=== PATIENT | female | born 1945 | race Caucasian/White ===

== ENCOUNTER 2017-02-09 11:48 | Inpatient (IN) | payer MEDICARE, OTHER ==
[~2017-02-09] VITALS: Ht 162.6 cm; Wt 69.1 kg
[~2017-02-09 11:48] MED LIST: ASPI325T PO; BILB100C PO; CALC-137 PO; FERR325T PO; FISH1000 PO; JUICLIQ5 PO; LORTA5 PO; ROSU5 PO; VESI5TAB PO; VITD400 PO; Z.0.CPM
[2017-02-09 11:54] VITALS: BP 171/90; PULSE 63; RESP 20; TEMP 98.8; O2SAT 100
[2017-02-09] MEDS ORDERED: VESI5TAB PO (11:58)
[2017-02-09] MEDS ORDERED: ROSU5 PO (11:58)
[2017-02-09] MEDS ORDERED: CALTTAB5 PO (11:58)
[2017-02-09] MEDS ORDERED: OMEGCAP PO (11:58)
[2017-02-09] MEDS ORDERED: ASPI81CH CHEW (11:58)
--- NOTE | 2017-02-09 12:04 | PD ---
HPI Chief Complaint: Fall Time Seen by Provider: 12:00 Travel History International Travel<30 days: No Contact w/Intl Traveler<30days: No Traveled to known affect area: No History of Present Illness HPI 71-year-old female that presents to the ED for evaluation of injury to the right hip. Patient came here by ambulance for evaluation of this. Injury occurred less than an hour ago. Patient states that she was at home going into her living room when her family member called to her and she twisted her body to look at her and she lost her balance and landed on her right hip. Per patient she had recent surgery on her right knee for knee replacement and was trying to save her knee as well as her head and she was successful but unfortunate she landed on her hip and ever since she's not been able to bear any weight on the hip. Per patient the pain is severe whenever she moves it is 10 out of 10. At the moment patient has no pain but she was also given 10 mg of morphine and states that movement is what makes it worse. She denies any numbness, tilling, weakness. No prior injuries or surgeries to the pelvis or hip. She denies hitting her head or taking any blood thinners. No other injuries reported. Patient has full range of motion of the left hip but she states that extending her left hip calluses pain on the right hip. Patient states that she has allergies to adhesives and sulfa PFSH Past Medical History Cancer: Yes (MELANOMA LEFT ARM; CERVICAL CA) Cardiovascular Problems: No Diabetes: No Endocrine: No Glaucoma: No Genitourinary: Yes (FREQUENCY) Hepatitis: No Hiatal Hernia: No Hypertension: No Immune Disorder: No Musculoskeletal: Yes (ARTHRITIS, HX OSTEOPENIA (REVERSED)) Neurologic: No Psychiatric: No Reproductive: No Respiratory: No Thyroid Disease: No Past Surgical History Abdominal Surgery: No AICD: No Cardiac Surgery: No Ear Surgery: No Endocrine Surgery: No Eye Surgery: No Genitourinary Surgery: No Gynecologic Surgery: Yes (HYSTERECTOMY R/T CERVICAL CA) Joint Replacement: No Oral Surgery: Yes (T&A) Pacemaker: No Thoracic Surgery: No Other Surgery: Yes (EXCISION MELANOMA LEFT UPPER ARM) Social History Alcohol Use: No Tobacco Use: No Substance Use: No Allergies-Medications (Allergen,Severity, Reaction): Coded Allergies: Sulfa (Verified Allergy, Intermediate, NAUSEA AND VOMITING ; DIARRHEA, ) Adhesives (Verified Allergy, Mild, BLISTERS, 10/08/15) Reported Meds & Prescriptions Reported Meds & Active Scripts Active Reported Vesicare (Solifenacin) 5 Mg Tab 5 Mg PO DAILY Crestor (Rosuvastatin Calcium) 5 Mg Tab 5 Mg PO EVERY OTHER DAY Matthews-3 Fish Oil/Vitamin (Fish Oil-Cholecalciferol) 1,000-1,000 Mg Cap 1 Cap PO DAILY Caltrate 600 (Calcium Carbonate) 1,500 Mg Tab 1 Tab PO BID Aspirin 81 Mg Chew 81 Mg CHEW DAILY Review of Systems General / Constitutional: No: Fever, Chills, Weight Gain, Weight Loss, Other Eyes: No: Diploplia, Blurred Vision, Photophobia, Drainage, Redness, Foreign Body Sensation, Pain, Tearing, Blind Spots, Visual changes, Blindness, Other HENT: No: Headaches, Vertigo, Lightheadedness, Sore Throat, Rhinitis, Rhinorrhea, Congestion, Nosebleed, Neck Stiffness, Neck Pain, Masses, Gingival Bleeding, Dental Difficulties, Ear Discharge, Earache, Other Cardiovascular: No: Chest Pain or Discomfort, Palpitations, Irregular Rhythm, Tachycardia, Diaphoresis, Syncope, Dyspnea on exertion, Varicosities, Edema, Cyanosis, Varicosities, Phlebitis, Claudication, Other Respiratory: No: Cough, Shortness of Breath, Wheezing, Sneezing, Orthopnea, Hemoptysis, Stridor, Night Sweats, Pleuritic Pain, Other Gastrointestinal: No: Nausea, Vomiting, Diarrhea, Abdominal Pain, Hematemesis, Hematochezia, Constipation, Changes in Bowel Habits, Indigestion, Dysphagia, Loss of Appetite, Other Genitourinary: No: Urgency, Frequency, Dysuria, Nocturia, Hematuria, Decreased Urinary Output, Oliguria, Hesitancy, Dribbling, Incontinence, Pelvic Pain, Flank Pain, Dyspareunia, Discharge, Dysmenorrhea, Menorrhagia, Metorrhagia, Vaginal Bleeding, Other Musculoskeletal: Positive: Limited ROM, Pain, No: Myalgias, Arthralgias, Weakness, Cramping, Edema, Atrophy, Other Skin: No Rash, No Itching, No Dryness, No Lumps, No Hives, No Change in Pigmentation, No Change in nails, No Alopecia, No Lesions, No Breast Lumps, No Breast Tenderness, No Breast Swelling, No Other Neurologic: No: Weakness, Dizziness, Syncope, Focal Abnormalities, Coordination Problem, Tremor, Ataxia, Headache, Change in Mentation, Slurred Speech, Paresthesia, Incontinence, Seizures, Sensory Disturbance, Other Psychiatric: No: Anxiety, Depression, Suicidal Ideations, Disorder of Thought, Mood Disorder, Substance Abuse, Homicidal Ideation, Other Endocrine: No: Heat Intolerance, Cold Intolerance, Polyuria, Polydipsia, Other Hematologic/Lymphatic: No: Easy Bruising, Lymph Node Enlargement, Other Physical Exam Narrative GENERAL: SKIN: Warm and dry. HEAD: Atraumatic. Normocephalic. EYES: Pupils equal and round. No scleral icterus. No injection or drainage. ENT: No nasal bleeding or discharge. Mucous membranes pink and moist. Tongue is midline. No uvula deviation. NECK: Trachea midline. No JVD. CARDIOVASCULAR: Regular rate and rhythm. No murmurs, S3, S4. RESPIRATORY: No accessory muscle use. Clear to auscultation. Breath sounds equal bilaterally. GASTROINTESTINAL: Abdomen soft, non-tender, nondistended. Hepatic and splenic margins not palpable. MUSCULOSKELETAL: Extremities without clubbing, cyanosis, or edema. No obvious deformities. Patient has pain with any range of motion of the right hip. Some shortening noted. No obvious lumbar, thoracic, cervical spine tenderness to palpation. No obvious deformities noted to the left hip. Patient does have reproducible pain with range of motion of the left hip especially with extension on the right hip. Patient has 2+ pulses in the lower extremities bilaterally. Sensation appears to be intact bilaterally. Full range of motion of the ankle, toes, feet. NEUROLOGICAL: Awake and alert. No obvious cranial nerve deficits. Motor grossly within normal limits. Five out of 5 muscle strength in the arms and legs. Normal speech. PSYCHIATRIC: Appropriate mood and affect; insight and judgment normal. Data Data Last Documented VS Vital Signs Date Time Temp Pulse Resp B/P Pulse Ox O2 Delivery O2 Flow Rate FiO2 02/09/17 11:54 98.8 63 20 171/90 100 Orders Hip, Uni(Ap&Lat) W Ap Pelvis (02/09/17 11:50) Spine, Lumbar - Ltd (Ap & Lat) (02/09/17 11:50) Iv Access Insert/Monitor (02/09/17 11:50) Complete Blood Count With Diff (02/09/17 11:52) Basic Metabolic Panel (Bmp) (02/09/17 11:52) Prothrombin Time / Inr (Pt) (02/09/17 11:52) Act Partial Throm Time (Ptt) (02/09/17 11:52) Urinalysis - C+S If Indicated (02/09/17 11:52) Magnesium (Mg) (02/09/17 11:52) Urinary Catheter Insert/Apply (02/09/17 12:14) Electrocardiogram (02/09/17 13:12) Chest, Single Ap (02/09/17 13:12) Admit Order (Ed Use Only) (02/09/17 13:25) Labs Laboratory Tests Test 02/09/17 12:20 White Blood Count 8.9 TH/MM3 Red Blood Count 4.69 MIL/MM3 Hemoglobin 13.3 GM/DL Hematocrit 38.7 % Mean Corpuscular Volume 82.7 FL Mean Corpuscular Hemoglobin 28.3 PG Mean Corpuscular Hemoglobin 34.3 % Concent Red Cell Distribution Width 15.5 % Platelet Count 250 TH/MM3 Mean Platelet Volume 7.7 FL Neutrophils (%) (Auto) 79.9 % Lymphocytes (%) (Auto) 14.4 % Monocytes (%) (Auto) 3.8 % Eosinophils (%) (Auto) 1.1 % Basophils (%) (Auto) 0.8 % Neutrophils # (Auto) 7.1 TH/MM3 Lymphocytes # (Auto) 1.3 TH/MM3 Monocytes # (Auto) 0.3 TH/MM3 Eosinophils # (Auto) 0.1 TH/MM3 Basophils # (Auto) 0.1 TH/MM3 CBC Comment DIFF FINAL Differential Comment Prothrombin Time 10.8 SEC Prothromb Time International 1.0 RATIO Ratio Activated Partial 24.9 SEC Thromboplast Time Urine Color LIGHT-YELLOW Urine Turbidity CLEAR Urine pH 7.5 Urine Specific [place] 1.010 Urine Protein NEG mg/dL Urine Glucose (UA) NEG mg/dL Urine Ketones NEG mg/dL Urine Occult Blood TRACE Urine Nitrite NEG Urine Bilirubin NEG Urine Urobilinogen LESS THAN 2.0 MG/DL Urine Leukocyte Esterase NEG Urine RBC 4 /hpf Urine WBC 2 /hpf Urine Bacteria OCC /hpf Microscopic Urinalysis Comment CULT NOT INDICATED Sodium Level 139 MEQ/L Potassium Level 3.7 MEQ/L Chloride Level 103 MEQ/L Carbon Dioxide Level 28.6 MEQ/L Anion Gap 7 MEQ/L Blood Urea Nitrogen 14 MG/DL Creatinine 0.83 MG/DL Estimat Glomerular Filtration 68 ML/MIN Rate Random Glucose 99 MG/DL Calcium Level 8.8 MG/DL Magnesium Level 2.0 MG/DL MDM Medical Decision Making Medical Screen Exam Complete: Yes Emergency Medical Condition: Yes Medical Record Reviewed: Yes Interpretation(s) CBC & BMP Diagram 02/09/17 12:20 coags WNL UA negative Last Impressions Hip and Pelvis X-Ray 02/09/17 1150 Signed Impressions: Service Date/Time: Thursday, February 09, 2017 12:52 - CONCLUSION: Comminuted, intertrochanteric fracture of the right hip. Deangelo Gandara MD Differential Diagnosis Fracture versus dislocation versus contusion Narrative Course 71-year-old female that presents to the ED for evaluation of right hip injury. Patient was properly examined and was found to have signs and symptoms concerning for hip fracture versus dislocation. Labs and imaging ordered. Labs and imaging showed right hip fracture. Case discussed in my attending who agrees with plan. Labs were ordered. Patient will be admitted to the medical team. Ortho consult pending. I spoke with the [facility] hospitalist Dr. Kennedy agrees to admission. Patient was admitted to the [facility] hospitalist. Case discussed with Paramjit BOONE for Dr. Garvey who agrees to admission to medicine and put him on traction as well as nothing by mouth after midnight. This was discussed with the family who agrees to plan. Diagnosis Primary Impression: Hip fracture Qualified Code: S72.001A - Hip fracture, right, closed, initial encounter Admitting Information Admitting Physician Requests: Admit Jerry Carrera Feb 09, 2017 12:04
[2017-02-09 12:43] LABS: AUTOMATED NEUTROPHIL # 7.1 TH/MM3 (1.8-7.7); BASOPHIL # 0.1 TH/MM3 (0-0.2); BASOPHIL % 0.8 % (0.0-2.0); EOSINOPHIL # 0.1 TH/MM3 (0-0.4); EOSINOPHIL % 1.1 % (0.0-4.0); HEMATOCRIT 38.7 % (35.0-46.0); HEMO FLAGS DIFF FINAL; LYMPH % 14.4 % (9.0-44.0); LYMPHOCYTE # 1.3 TH/MM3 (1.0-4.8); MEAN CELL VOLUME 82.7 FL (80.0-100.0); MEAN CORPUSCULAR HEMOGLOBIN 28.3 PG (27.0-34.0); MEAN CORPUSCULAR HGB CONC 34.3 % (32.0-36.0); MONO % 3.8 % (0.0-8.0); NEUT % 79.9 % (16.0-70.0); PLATELET COUNT 250 TH/MM3 (150-450); RED BLOOD COUNT 4.69 MIL/MM3 (4.00-5.30); RED CELL DISTRIBUTION WIDTH 15.5 % (11.6-17.2); WHITE BLOOD COUNT 8.9 TH/MM3 (4.0-11.0)
[2017-02-09 12:48] LABS: BACTERIA, URINE OCC /hpf; BLOOD, URINE TRACE (NEG); COMMENT (UR) CULT NOT INDICATED; CULTURE IF INDICATED CULT NOT INDICATED; GLUCOSE,URINE NEG (NEG); KETONE, URINE NEG (NEG); NITRITE,URINE NEG (NEG); PH, URINE 7.5 (5.0-8.5); URINE COLOR LIGHT-YELLOW (YELLW/STRAW)
[2017-02-09 12:51] LABS: APTT (PATIENT) 24.9 SEC (24.3-30.1); PROTHROMBIN TIME - PATIENT 10.8 SEC (9.8-11.6)
[2017-02-09 13:03] LABS: BICARBONATE 28.6 MEQ/L (21.0-32.0); POTASSIUM 3.7 MEQ/L (3.5-5.1)
--- NOTE | 2017-02-09 13:29 | RADRPT ---
EXAM DATE/TIME: 02/09/2017 12:52 [facility] COMPARISON: No previous studies available for comparison. INDICATIONS : Fall. Right hip pain. MEDICAL HISTORY : None. SURGICAL HISTORY : Total knee replacement, right. ENCOUNTER: Initial ACUITY: 1 day PAIN SCORE: 10/10 LOCATION: Right hip FINDINGS: Examination of the right hip was performed with AP Pelvis. There is a comminuted, intertrochanteric r ight hip fracture. Femoral acetabular articulation is preserved. Surgical clips in the pelvis are chelsie racteristic of a prior tubal ligation. Degenerative changes of the lower lumbar spine. CONCLUSION: Comminuted, intertrochanteric fracture of the right hip. Deangelo Gandara MD on February 09, 2017 at 13:27 Board Certified Radiologist. This report was verified electronically.
--- NOTE | 2017-02-09 13:57 | PD ---
Physical Exam Date Seen by Provider: Feb 09, 2017 Time Seen by Provider: 13:00 Narrative I, Dr. Soni, have reviewed the advance practice practitioner's documentation and am in agreement, met with the patient face to face, made the diagnosis, and the medical decision making was done by me. *My assessment and Findings: Patient was seen and evaluated with PA, please see PA note for further details. Presents to the ER after loss of balance and fall onto right hip, complaining of right hip pain, denies other injuries or head injuries. On palpation, she is tender to palpation in the right hip area is unable to range the right hip secondary to pain. Neurovascularly intact. Laboratory Tests Test 02/09/17 12:20 Neutrophils (%) (Auto) 79.9 % (16.0-70.0) Urine Occult Blood TRACE (NEG) Urine RBC 4 /hpf (0-3) Urine Bacteria OCC /hpf (NONE) Estimat Glomerular Filtration 68 ML/MIN (>89) Rate Last 24 hours Impressions Hip and Pelvis X-Ray 02/09/17 1150 Signed Impressions: Service Date/Time: Thursday, February 09, 2017 12:52 - CONCLUSION: Comminuted, intertrochanteric fracture of the right hip. Deangelo Gandara MD X-ray shows significant comminuted fracture of the right hip and at this point, plan would be to admit the patient for further orthopedic definitive treatment. Case discussed with hospitalist for admission. Data Data Last Documented VS Vital Signs Date Time Temp Pulse Resp B/P Pulse Ox O2 Delivery O2 Flow Rate FiO2 02/09/17 11:54 98.8 63 20 171/90 100 Orders Hip, Uni(Ap&Lat) W Ap Pelvis (02/09/17 11:50) Spine, Lumbar - Ltd (Ap & Lat) (02/09/17 11:50) Iv Access Insert/Monitor (02/09/17 11:50) Complete Blood Count With Diff (02/09/17 11:52) Basic Metabolic Panel (Bmp) (02/09/17 11:52) Prothrombin Time / Inr (Pt) (02/09/17 11:52) Act Partial Throm Time (Ptt) (02/09/17 11:52) Urinalysis - C+S If Indicated (02/09/17 11:52) Magnesium (Mg) (02/09/17 11:52) Urinary Catheter Insert/Apply (02/09/17 12:14) Electrocardiogram (02/09/17 13:12) Chest, Single Ap (02/09/17 13:12) Admit Order (Ed Use Only) (02/09/17 13:25) Labs Laboratory Tests Test 02/09/17 12:20 White Blood Count 8.9 TH/MM3 Red Blood Count 4.69 MIL/MM3 Hemoglobin 13.3 GM/DL Hematocrit 38.7 % Mean Corpuscular Volume 82.7 FL Mean Corpuscular Hemoglobin 28.3 PG Mean Corpuscular Hemoglobin 34.3 % Concent Red Cell Distribution Width 15.5 % Platelet Count 250 TH/MM3 Mean Platelet Volume 7.7 FL Neutrophils (%) (Auto) 79.9 % Lymphocytes (%) (Auto) 14.4 % Monocytes (%) (Auto) 3.8 % Eosinophils (%) (Auto) 1.1 % Basophils (%) (Auto) 0.8 % Neutrophils # (Auto) 7.1 TH/MM3 Lymphocytes # (Auto) 1.3 TH/MM3 Monocytes # (Auto) 0.3 TH/MM3 Eosinophils # (Auto) 0.1 TH/MM3 Basophils # (Auto) 0.1 TH/MM3 CBC Comment DIFF FINAL Differential Comment Prothrombin Time 10.8 SEC Prothromb Time International 1.0 RATIO Ratio Activated Partial 24.9 SEC Thromboplast Time Urine Color LIGHT-YELLOW Urine Turbidity CLEAR Urine pH 7.5 Urine Specific [place] 1.010 Urine Protein NEG mg/dL Urine Glucose (UA) NEG mg/dL Urine Ketones NEG mg/dL Urine Occult Blood TRACE Urine Nitrite NEG Urine Bilirubin NEG Urine Urobilinogen LESS THAN 2.0 MG/DL Urine Leukocyte Esterase NEG Urine RBC 4 /hpf Urine WBC 2 /hpf Urine Bacteria OCC /hpf Microscopic Urinalysis Comment CULT NOT INDICATED Sodium Level 139 MEQ/L Potassium Level 3.7 MEQ/L Chloride Level 103 MEQ/L Carbon Dioxide Level 28.6 MEQ/L Anion Gap 7 MEQ/L Blood Urea Nitrogen 14 MG/DL Creatinine 0.83 MG/DL Estimat Glomerular Filtration 68 ML/MIN Rate Random Glucose 99 MG/DL Calcium Level 8.8 MG/DL Magnesium Level 2.0 MG/DL [facility] Medical Record Reviewed: Yes Supervised Visit with CAMILA: Yes Diagnosis Primary Impression: Hip fracture Qualified Code: S72.001A - Hip fracture, right, closed, initial encounter Admitting Information Admitting Physician Requests: Admit Courtney Soni MD Feb 09, 2017 13:57
[2017-02-09] MEDS ORDERED: ONDANSETRON HCL 4 MG/2 ML VIAL IV PUSH PRN (14:15)
--- NOTE | 2017-02-09 14:56 | RADRPT ---
EXAM DATE/TIME: 02/09/2017 12:52 [facility] COMPARISON: KNEE RIGHT LTD (1 OR 2 VWS), October 23, 2015, 10:33. INDICATIONS : Fall. Right hip pain. MEDICAL HISTORY : None. SURGICAL HISTORY : Total knee replacement, right. ENCOUNTER: Initial ACUITY: 1 day PAIN SCORE: 8/10 LOCATION: Lumbar FINDINGS: There are 5 lumbar-type [id number] vertebral bodies. There are degenerated disc at L3/4, L4/5 L5 /S1. There is moderate facet arthritis at these levels as well. No acute fracture or destructive lesion is seen. CONCLUSION: 1. Degenerative changes in the lower lumbar spine. No acute abnormality identified. Pool Mcknight MD on February 09, 2017 at 13:10 Board Certified Radiologist. This report was verified electronically.
--- NOTE | 2017-02-09 14:59 | RADRPT ---
EXAM DATE/TIME: 02/09/2017 13:41 [facility] COMPARISON: No previous studies available for comparison. INDICATIONS : Evaluate for pneumonia, pneumothorax, and communicable disease. MEDICAL HISTORY : None. SURGICAL HISTORY : None. ENCOUNTER: Subsequent ACUITY: 1 day PAIN SCORE: 10/10 LOCATION: Bilateral chest FINDINGS: Surgical clips are present in the left axillary region. There is no evidence of infiltrate or effusio n. Cardiomediastinal contours are normal. CONCLUSION: No acute disease Nixon Flaherty MD on February 09, 2017 at 14:57 Board Certified Radiologist. This report was verified electronically.
[2017-02-09] MEDS ORDERED: HYDROmorphone HCL PF 1 MG/ML VIAL IV PUSH ONE (15:00)
--- NOTE | 2017-02-09 15:44 | HHI.HP ---
[facility] Service [facility] Primary Care Physician Lydia Meredith M.D. Admission Diagnosis acute right hip fracture Diagnoses: Chief Complaint: RIGHT HIP PAIN AFTER FALL (Kisha Ruiz) Travel History International Travel<30 Days: No Contact w/Intl Traveler <30 Da: No Traveled to Known Affected Are: No (Kisha Ruiz) History of Present Illness This is a pleasant 71-year-old female with past medical history of dyslipidemia , melanoma, overactive bladder, osteoarthritis. Patient was in her usual state of health. States that she was at home going to her living room when her sister called her name, and she twisted her body to look at her and lost her balance and landed on her right hip. She had difficulty bearing weight. Indicates the pain was severe. Has intact sensation. Denies hitting her head, or neck pain. Denies any preceding symptoms prior to fall such as dizziness, lightheadedness, no chest pain. Patient was evaluated in emergency room, laboratory workup unremarkable. Imaging studies were completed showing comminuted intertrochanteric fracture of the right hip. Orthopedic was consulted from the emergency room, Tran's traction has been ordered. Patient is complaining of pain with any movement. She has intact sensation. Patient denies any recent illnesses, no recent fever, no chills. Denies any chest pain , shortness of breath. Patient is admitted for further evaluation and treatment (Kisha Ruiz) Review of Systems Constitutional: DENIES: Diaphoretic episodes, Fatigue, Fever, Weight gain, Weight loss, Chills, Dizziness, Change in appetite, Night Sweats Endocrine: DENIES: Abnorml menstrual pattern, Heat/cold intolerance, Polydipsia , Polyuria, Polyphagia Eyes: DENIES: Blurred vision, Diplopia, Eye inflammation, Eye pain, Vision loss , Photosensitivity, Double Vision Ears, nose, mouth, throat: DENIES: Tinnitus, Hearing loss, Vertigo, Nasal discharge, Oral lesions, Throat pain, Hoarseness, Ear Pain, Running Nose, Epistaxis, Sinus Pain, Toothache, Odynophagia Respiratory: DENIES: Apneas, Cough, Snoring, Wheezing, Hemoptysis, Sputum production, Shortness of breath Cardiovascular: DENIES: Chest pain, Palpitations, Syncope, Dyspnea on Exertion , PND, Lower Extremity Edema, Orthopnea, Claudication Gastrointestinal: DENIES: Abdominal pain, Black stools, Bloody stools, Constipation, Diarrhea, Nausea, Vomiting, Difficulty Swallowing, Anorexia Genitourinary: DENIES: Abnormal vaginal bleeding, Dysmenorrhea, Dyspareunia, Sexual dysfunction, Urinary frequency, Urinary incontinence, Urgency, Hematuria , Dysuria, Nocturia, Vaginal discharge Musculoskeletal: COMPLAINS OF: Joint pain, DENIES: Muscle aches, Stiffness, Joint Swelling, Back pain, Neck pain Integumentary: DENIES: Abnormal pigmentation, Pruritus, Rash, Nail changes, Breast masses, Breast skin changes, Nipple discharge Hematologic/lymphatic: DENIES: Bruising, Lymphadenopathy Immunologic/allergic: DENIES: Eczema, Urticaria Neurologic: DENIES: Abnormal gait, Headache, Localized weakness, Paresthesias, Seizures, Speech Problems, Tremor, Poor Balance Psychiatric: DENIES: Anxiety, Confusion, Mood changes, Depression, Hallucinations, Agitation, Suicidal Ideation, Homicidal Ideation, Delusions ( Kisha Ruiz) Past Family Social History Past Medical History Hyperlipidemia Overactive bladder Severe OA of the right knee History of melanoma History cervical cancer Past Surgical History History of excision of the melanoma Hysterectomy Right total knee arthroplasty October 2015 Reported Medications Reported Meds & Active Scripts Active Reported Vesicare (Solifenacin) 5 Mg Tab 5 Mg PO DAILY Crestor (Rosuvastatin Calcium) 5 Mg Tab 5 Mg PO EVERY OTHER DAY [place]-3 Fish Oil/Vitamin (Fish Oil-Cholecalciferol) 1,000-1,000 Mg Cap 1 Cap PO DAILY Caltrate 600 (Calcium Carbonate) 1,500 Mg Tab 1 Tab PO BID Aspirin 81 Mg Chew 81 Mg CHEW DAILY (Kisha Ruiz) Allergies: Coded Allergies: Sulfa (Verified Allergy, Intermediate, NAUSEA AND VOMITING ; DIARRHEA, ) Adhesives (Verified Allergy, Mild, BLISTERS, 10/08/15) Active Ordered Medications Inpatient Medications Atorvastatin Calcium (Lipitor) 10 mg EVERY OTHER DAY PO ; Start 02/11/17 at 09: 00 Hydromorphone HCl (Dilaudid Pf Inj) 1 mg ONCE ONCE IV PUSH Last administered on 02/09/17t 15:13; Start 02/09/17 at 15:00; Stop 02/09/17 at 15:01; Status DC Morphine Sulfate (Morphine Inj) 4 mg Q4H PRN IV PUSH PAIN 5 TO 10; Start at 14:15 Ondansetron HCl (Zofran Inj) 4 mg Q8HR PRN IV PUSH N/V Last administered on t 15:13; Start 02/09/17 at 14:15 Tolterodine Tartrate (Detrol La) 2 mg DAILY PO ; Start 02/10/17 at 09:00 Family History Unknown patient is adopted. Social History Lives at home with her . Denies tobacco, alcohol, or illicit drug use. ( Kisha Ruiz) Physical Exam Vital Signs Vital Signs Date Time Temp Pulse Resp B/P Pulse Ox O2 Delivery O2 Flow Rate FiO2 02/09/17 11:54 98.8 63 20 171/90 100 Physical Exam GENERAL: This is a well-nourished, well-developed patient, in no apparent distress. SKIN: No rashes, ecchymoses or lesions. Cool and dry. HEAD: Atraumatic. Normocephalic. No temporal or scalp tenderness. EYES: Pupils equal round and reactive. Extraocular motions intact. No scleral icterus. No injection or drainage. ENT: Nose without bleeding, purulent drainage or septal hematoma. Throat without erythema, tonsillar hypertrophy or exudate. Uvula midline. Airway patent. NECK: Trachea midline. No JVD or lymphadenopathy. Supple, nontender, no meningeal signs. CARDIOVASCULAR: Regular rate and rhythm without murmurs, gallops, or rubs. RESPIRATORY: Clear to auscultation. Breath sounds equal bilaterally. No wheezes , rales, or rhonchi. GASTROINTESTINAL: Abdomen soft, non-tender, nondistended. No hepato-splenomegaly , or palpable masses. No guarding. MUSCULOSKELETAL: Complains of pain to her right hip with any minimal movement. Slight shortening of right leg, slightly rotated externally. Intact sensation to the right foot. Bilateral pedal pulses 2+. NEUROLOGICAL: Awake and alert. Cranial nerves II through XII intact. Motor and sensory grossly within normal limits. Five out of 5 muscle strength in all muscle groups. Normal speech. Laboratory Laboratory Tests Test 02/09/17 12:20 White Blood Count 8.9 Red Blood Count 4.69 Hemoglobin 13.3 Hematocrit 38.7 Mean Corpuscular Volume 82.7 Mean Corpuscular Hemoglobin 28.3 Mean Corpuscular Hemoglobin 34.3 Concent Red Cell Distribution Width 15.5 Platelet Count 250 Mean Platelet Volume 7.7 Neutrophils (%) (Auto) 79.9 Lymphocytes (%) (Auto) 14.4 Monocytes (%) (Auto) 3.8 Eosinophils (%) (Auto) 1.1 Basophils (%) (Auto) 0.8 Neutrophils # (Auto) 7.1 Lymphocytes # (Auto) 1.3 Monocytes # (Auto) 0.3 Eosinophils # (Auto) 0.1 Basophils # (Auto) 0.1 CBC Comment DIFF FINAL Differential Comment Prothrombin Time 10.8 Prothromb Time International 1.0 Ratio Activated Partial 24.9 Thromboplast Time Urine Color LIGHT-YELLOW Urine Turbidity CLEAR Urine pH 7.5 Urine Specific [place] 1.010 Urine Protein NEG Urine Glucose (UA) NEG Urine Ketones NEG Urine Occult Blood TRACE Urine Nitrite NEG Urine Bilirubin NEG Urine Urobilinogen LESS THAN 2.0 Urine Leukocyte Esterase NEG Urine RBC 4 Urine WBC 2 Urine Bacteria OCC Microscopic Urinalysis Comment CULT NOT INDICATED Sodium Level 139 Potassium Level 3.7 Chloride Level 103 Carbon Dioxide Level 28.6 Anion Gap 7 Blood Urea Nitrogen 14 Creatinine 0.83 Estimat Glomerular Filtration 68 Rate Random Glucose 99 Calcium Level 8.8 Magnesium Level 2.0 (Kisha Ruiz) Result Diagram: 02/09/17 1220 02/09/17 1220 Imaging Last Impressions Chest X-Ray 02/09/17 1312 Signed Impressions: Service Date/Time: Thursday, February 09, 2017 13:41 - CONCLUSION: No acute disease Nixon Flaherty MD Lumbar Spine X-Ray 02/09/17 1150 Signed Impressions: Service Date/Time: Thursday, February 09, 2017 12:52 - CONCLUSION: 1. Degenerative changes in the lower lumbar spine. No acute abnormality identified. Pool Mcknight MD Hip and Pelvis X-Ray 02/09/17 1150 Signed Impressions: Service Date/Time: Thursday, February 09, 2017 12:52 - CONCLUSION: Comminuted, intertrochanteric fracture of the right hip. Deangelo Gandara MD (Kisha Ruiz) Assessment and Plan Problem List: (1) Hip fracture (2) Dyslipidemia (3) Overactive bladder Assessment and Plan Admit to Dr. Kennedy 71-year-old female admitted status post fall, found with comminuted intertrochanteric fracture of the right hip. -Orthopedic consultation -Morphine 4 mg every 4 when necessary for pain -SCDs for DVT prophylaxis Continue with Tran's traction Neurovascular checks History of overactive bladder Continue with home medications Dyslipidemia Continue with home medications SCDs for DVT prophylaxis Home medications reviewed, initiated as indicated Plan of care has been discussed with the patient and her family, attending and registered nurse. Further management of the patient will be dependent on the hospital course Patient requires inpatient admission for anticipated stay greater than 2 days for right intertrochanteric femur fracture. Patient is at risk for complications from fracture that can result from immobility such as pressure areas, disability, joint deformity, pain. Patient requires admission for pain management, surgical intervention, physical therapy. Anticipated discharge to home with home health care versus rehabilitation when stable This patient was seen by myself and Dr. Kennedy, this H&P is written on his behalf (Kisha Ruiz) Assessment and Plan pt is seen & examined d/w PT & her at bedside d/w Kisha mchugh w above will f/u (Blanka Kennedy MD) Physician Certification 2 Midnight Certification Type: Admission for Inpatient Services Order for Inpatient Services The services are ordered in accordance with Medicare regulations or non- Medicare payer requirements, as applicable. In the case of services not specified as inpatient-only, they are appropriately provided as inpatient services in accordance with the 2-midnight benchmark. Estimated LOS (days): 2 2 days is the estimated time the patient will need to remain in the hospital, assuming treatment plan goals are met and no additional complications. Post-Hospital Plan: SNF (Kisha Ruiz) Problem Qualifiers (1) Hip fracture: Qualified Code: S72.001A - Hip fracture, right, closed, initial encounter Kisha Ruiz Feb 09, 2017 15:44 Blanka Kennedy MD Feb 09, 2017 16:32
[2017-02-09] MEDS ORDERED: ACETAMINOPHEN 325 MG TAB PO PRN (15:45)
[2017-02-09] MEDS ORDERED: MAGNESIUM HYDROXIDE SUSP 30 ML CUP PO PRN (15:45)
[2017-02-09] MEDS ORDERED: DOCUSATE SODIUM 50 MG/SENNA 8.6 MG TAB PO PRN (15:45)
[2017-02-09 18:40] VITALS: BP 170/71; PULSE 69; RESP 18; TEMP 97.1; O2SAT 92
[2017-02-09] MEDS ORDERED: WALKER/ADULT/FO1 MIS (19:40)
[2017-02-09] MEDS ORDERED: HYDR-3288 PO (19:40)
[2017-02-09] MEDS ORDERED: ERGO1CAP30 PO (19:40)
[2017-02-09] MEDS ORDERED: VITA2000 PO (19:40)
[2017-02-09] MEDS ORDERED: CALCTAB19 PO (19:40)
[2017-02-09] MEDS ORDERED: XARE10TA PO (19:40)
[2017-02-09 20:00] VITALS: BP 188/84; PULSE 75; RESP 16; TEMP 96.1; O2SAT 97
[2017-02-09] MEDS: MORPHINE SULFATE 4 MG/ML INJ IV PUSH PRN (20:09)
[2017-02-09 23:45] VITALS: BP 172/77; PULSE 73; RESP 16; TEMP 97.2; O2SAT 96
[2017-02-10] MEDS ORDERED: SODIUM CHLORID 0.9% 500 ML IV SCH (01:00)
[2017-02-10] MEDS ORDERED: LACTATED RINGER'S 1000 ML IV SCH (01:00)
[2017-02-10] MEDS ORDERED: cloNIDine HCL 0.1 MG TAB PO PRN (01:30)
[2017-02-10] MEDS: MORPHINE SULFATE 4 MG/ML INJ IV PUSH PRN (01:57)
[2017-02-10 03:30] VITALS: BP 152/70; PULSE 83; RESP 17; TEMP 98.3; O2SAT 93
--- NOTE | 2017-02-10 06:54 | PD.ORT.PN ---
Subjective Subjective Remarks Pain controlled overnight Objective Vitals Vital Signs Date Time Temp Pulse Resp B/P Pulse Ox O2 Delivery O2 Flow Rate FiO2 02/10/17 03:30 98.3 83 17 152/70 93 02/10/17 02:09 18 02/09/17 23:45 97.2 73 16 172/77 96 02/09/17 20:00 96.1 75 16 188/84 97 02/09/17 18:40 97.1 69 18 170/71 92 02/09/17 11:54 98.8 63 20 171/90 100 I/O 02/09/17 02/09/17 02/09/17 02/10/17 02/10/17 02/10/17 07:00 15:00 23:00 07:00 15:00 23:00 Intake Total 240 ml 120 ml Output Total 500 ml 150 ml Balance -260 ml -30 ml Intake Oral 240 ml 120 ml Output Urine Total 500 ml 150 ml # Bowel Movements 0 0 Result Diagram: 02/09/17 1220 02/09/17 1220 Other Results Laboratory Tests Test 02/09/17 12:20 Prothrombin Time 10.8 SEC (9.8-11.6) Prothromb Time International 1.0 RATIO Ratio Imaging Last 24 hours Impressions Chest X-Ray 02/09/17 1312 Signed Impressions: Service Date/Time: Thursday, February 09, 2017 13:41 - CONCLUSION: No acute disease Nixon Flaherty MD Lumbar Spine X-Ray 02/09/17 1150 Signed Impressions: Service Date/Time: Thursday, February 09, 2017 12:52 - CONCLUSION: 1. Degenerative changes in the lower lumbar spine. No acute abnormality identified. Pool Mcknight MD Hip and Pelvis X-Ray 02/09/17 1150 Signed Impressions: Service Date/Time: Thursday, February 09, 2017 12:52 - CONCLUSION: Comminuted, intertrochanteric fracture of the right hip. Deangelo Gandara MD Objective Remarks Right lower extremity: Pain over hip. No pain with knee or ankle range of motion. Distally intact sensation good capillary refills and strong dorsal flexion plantar flexion foot Assessment & Plan Assessment and Plan Right intertrochanteric fracture of hip Nothing by mouth Sign consents Surgery this morning with Dr. Romero for intramedullary nail fixation We'll plan toward discharge to rehabilitation Farshad Bass Jr. Feb 10, 2017 06:54
[2017-02-10] MEDS ORDERED: VANCOMYCIN HCL 1000 MG VIAL ONE (07:03)
[2017-02-10] MEDS ORDERED: BUPIVACAINE/EPINEPHRINE 0.25% PF 10 ML VIAL ONE (07:03)
[2017-02-10] MEDS ORDERED: ceFAZolin INJ 1,000 MG VIAL ONE (07:03)
[2017-02-10] MEDS ORDERED: SODIUM CHLOR 0.9% 250 ML INJ 250 ML ONE (07:04)
[2017-02-10] MEDS ORDERED: GENTAMICIN SULFATE 80 MG/2 ML VIAL ONE (07:04)
--- NOTE | 2017-02-10 07:08 | MB ---
cc: PAULIE MENDOZA DATE OF CONSULTATION 02/09/2017 REASON FOR CONSULTATION Right hip intertrochanteric fracture. CONSULTING PHYSICIAN Dr. Blanka Kennedy HISTORY Mae is a 71-year-old female who slipped and fell at home. She states that she slipped on a tile floor. She had turned her head to look behind her when she lost her balance. She had immediate right hip pain. She was unable to stand or ambulate. She did not hit her head. She had no dizziness, syncope or loss of consciousness. She is unable to stand or ambulate. She presented to the emergency room where x-rays revealed a right hip intertrochanteric fracture. She is currently awake and alert on the orthopedic floor. Her only complaint is right hip pain. PAST MEDICAL HISTORY ILLNESSES 1. High cholesterol 2. Overactive bladder 3. Osteoarthritis 4. History of melanoma. 5. History of cervical cancer. SURGERIES 1. Melanoma excision 2. Hysterectomy 3. Right knee arthroplasty MEDICATIONS Include: 1. Vesicare 2. Crestor 3. [place] 3 4. Caltrate 5. Aspirin ALLERGIES SULFA AND ADHESIVE TAPE. FAMILY HISTORY The patient was adopted. Her family history is unknown. SOCIAL HISTORY The patient lives at home with her . She denies alcohol, tobacco or drug use. REVIEW OF SYSTEMS The patient denies headache, visual changes, neck pain, chest pain, shortness of breath, abdominal pain, nausea or recent weight loss, numbness or tingling of extremities. She denies bowel or bladder incontinences. She complains of right hip pain. Pain is worse with movement. PHYSICAL EXAMINATION The patient is a well-developed, well-nourished 71-year female in no acute distress. She is awake and alert. She is alert and oriented x3. She appears well-developed and well-nourished. VITAL SIGNS: Temperature 97.1, pulse 69, respirations 18, blood pressure 170/71, O2 sat 92% on room air. HEAD: The patient is normocephalic. Pupils are equal. NECK: Soft and nontender. Trachea is midline. ABDOMEN: Soft, nontender and nondistended. EXTREMITIES: Examination of the bilateral upper extremities reveals no pain with shoulder, elbow or wrist motion bilaterally. Radial pulses are palpable bilaterally. Sensation is intact in the radial, ulnar, median nerve distributions bilaterally. Bi Tester strength is +5. Examination of left leg reveals no pain with hip, knee or ankle motion. Skin is intact. Dorsalis pedis pulses palpable. Sensation is intact in the left foot. Examination of the right leg reveals pain with any hip motion. She has no tenderness around her knee, tibia or ankle. Skin is intact. Dorsalis pedis pulse is palpable. Sensation intact in the right foot. X-RAYS X-rays of the right hip were reviewed. X-rays reveal a mildly displaced right hip intertrochanteric fracture. IMPRESSION 1. Right hip intertrochanteric fracture. 2. High cholesterol PLAN Treatment options were discussed with the patient. At this point, I would recommend right hip reduction, intramedullary nail fixation. The risks of surgery include bleeding, infection, injury to arteries, nerves, blood vessels, painful hardware, hip bursitis, avascular necrosis, need for hip replacement, as well as medical complications including blood clot, stroke, heart attack and . All questions were answered. I will plan on surgery today. A mid-level provider in my office (nurse practitioner or physician executive marketing assistant) may see this patient on follow-up visits and continue to implement the objectives of this plan including: Starting or adjusting medications, injections , cast application, orthotics, brace application, physical therapy, radiological studies (including x-ray, MRI, CT, ultrasound, bone scan), vascular studies, neurologic studies, specialist consultation, and proceeding with surgical management, as appropriate. MD YEVGENIY Bryant/TIA /7:48 PM /7:02 AM ISABEL
[2017-02-10] MEDS ORDERED: DEXAMETHASONE SOD PHOS 4 MG/ML VIAL ONE (07:11)
[2017-02-10] MEDS ORDERED: MIDAZOLAM HCL 2 MG/2 ML VIAL ONE (07:11)
[2017-02-10] MEDS ORDERED: ACETAMINOPHEN/HYDROcodone 325 MG/7.5 MG TAB PO PRN (08:30)
[2017-02-10] MEDS ORDERED: SODIUM CHLORIDE 0.9% FLUSH 5 ML FLUSH IVF PRN (08:30)
[2017-02-10] MEDS ORDERED: MORPHINE SULFATE 4 MG/ML INJ IV PUSH PRN (08:30)
[2017-02-10] MEDS ORDERED: diphenhydrAMINE HCL 25 MG CAP PO PRN (08:30)
--- NOTE | 2017-02-10 08:30 | PD.OP ---
cc: Morales Garvey MD Operative Report Date of Surgery: Feb 10, 2017 Preoperative Diagnosis: Right hip intertrochanteric fracture Postoperative Diagnosis: Procedure: Right hip reduction and intramedullary nail fixation Anesthesia: Gen. Surgeon: Morales Garvey Optical Glass Wet Inspector(s): MELY Roberts PA-C The surgical procedure was assisted by my physician family services assistant. My P.A. presence was necessary throughout this case for the manipulation and positioning of the surgical extremity. My P.A. was assisting me throughout the duration of this procedure. The skill set of a physician family services assistant was medically necessary to complete this procedure. During the surgical case the certified surgical technician was working at the back table and the physician family services assistant was directly assisting me. Operation and Findings: Implants used: 130 10 mm Synthes TFNA short troch nail Plan of activity: Weight-bear as tolerated Patient was seen and evaluated preoperatively. The patient has significant hip pain from intertrochanteric hip fracture. The risk and benefits of surgery were discussed in depth with the patient to include bleeding infection nonunion malunion and need for hip replacement painful hardware as well as medical competitions including but not stroke heart attack and . Informed consent was obtained. Operative site was marked. Patient was brought to the operating room and placed on fracture table. IV sedation was administered by anesthesiologist. Timeout procedure was performed. Hip and leg were prepped with alcohol followed by DuraPrep and draped in the usual sterile fashion. IV antibiotics were given prior to incision. Procedure began with reduction of fracture. Traction was applied. The leg was manipulated to achieve reduction. Excellent reduction was achieved. Fluoroscopy was used to confirm reduction. A three inch incision was made proximal to the trochanter. Subcutaneous tissue was dissected bluntly. Guidepin was placed at the tip of the trochanter and advanced into the femoral canal. Fluoroscopy confirmed appropriate guidepin placement. A opening reamer was placed over the guidepin. The Synthes TFNA nail was attached to the insertion handle. Nail was now placed through the tip of the trochanter into the femoral canal. Fluoroscopy confirmed appropriate nail placement. A second incision was made over the lateral thigh. Cannulas were placed through the insertion handle down to the femur. Guidepin was now placed through the femoral nail into the center of the femoral head. Fluoroscopy confirmed appropriate guidepin placement. Screw length was measured. Cannulated drill was placed over the guidepin. Appropriate length lag screw was now placed. Traction was released and compression was applied. The set screw was now tightened in dynamic mode. Using the insertion handle as a guide a distal interlocking screw was drilled and placed. Final fluoroscopy revealed well aligned fracture with well-placed hardware. Incision was closed with 3-0 Vicryl and eddy. Sterile dressings were applied. Patient was awakened and transferred to recovery room. Morales Garvey MD Feb 10, 2017 08:30
[2017-02-10] MEDS ORDERED: ONDANSETRON HCL 4 MG/2 ML VIAL IV PUSH ONE (08:34)
[2017-02-10] MEDS ORDERED: PROPOFOL 200 MG/20 ML AMP IV ONE (08:34)
[2017-02-10] MEDS ORDERED: SODIUM CHLOR 0.9% 250 ML INJ 250 ML IV ONE (08:34)
[2017-02-10] MEDS ORDERED: *morphine SULFATE 8 MG/ML PERIprocedure ONLY ONE (08:50)
[2017-02-10] MEDS ORDERED: DO NOT ADM ANY ANTICOAGULANT DRUGS XX PRN (09:00)
[2017-02-10] MEDS: SODIUM CHLORIDE 0.9% FLUSH 5 ML FLUSH IVF SCH ×2 (09:00→21:00)
[2017-02-10 09:40] VITALS: BP 139/67; PULSE 63; RESP 19; TEMP 95.6; O2SAT 95
[2017-02-10] MEDS: TOLTERODINE TARTRATE 2 MG CAP LA PO SCH (10:11)
[2017-02-10] MEDS: CHOLECALCIFEROL (VIT D3) 5000 UNIT CAP PO SCH (10:12)
[2017-02-10] MEDS: CALCIUM/VITAMIN D 250 MG/125 U TAB PO SCH ×3 (10:12→16:38)
--- NOTE | 2017-02-10 10:20 | EKG ---
Date Performed: 02/09/2017 Time Performed: 15:08:39 PTAGE: 71 years EKG: Sinus rhythm POSSIBLE RIGHT VENTRICULAR CONDUCTION DELAY BORDERLINE ECG PREVIOUS TRACING : 10/08/2015 09.33 DOCTOR: Adrian Hilliard Interpretating Date/Time 02/10/2017 10:17:32
[2017-02-10] MEDS ORDERED: ERGOCALCIFEROL (VIT D2) 50,000 UNIT CAP PO ONE (10:30)
[2017-02-10 11:34] VITALS: BP 153/66; PULSE 69; RESP 19; TEMP 96.2; O2SAT 95
--- NOTE | 2017-02-10 13:02 | HHI.PR ---
Subjective Subjective Remarks S/P Right hip reduction and intramedullary nail fixation 02/10 smiling, feels better pain controlled no n/v awake, oriented x 3 wants to eat no acute changes overnight family at bsd Review of Systems Constitutional Constitutional Remarks 12 point ROS completed, negative except as noted above Vitals/Results Intake & Output 02/09/17 02/09/17 02/10/17 15:00 23:00 07:00 Intake Total 240 ml 120 ml Output Total 500 ml 150 ml Balance -260 ml -30 ml Intake Oral 240 ml 120 ml Output Urine Total 500 ml 150 ml # Bowel Movements 0 0 Vital Signs Vital Signs Date Time Temp Pulse Resp B/P Pulse Ox O2 Delivery O2 Flow Rate FiO2 02/10/17 11:34 96.2 69 19 153/66 95 02/10/17 09:40 95.6 63 19 139/67 95 02/10/17 09:25 97.9 67 12 132/69 97 Nasal Cannula 2 02/10/17 09:15 77 12 142/72 98 Nasal Cannula 2 02/10/17 09:00 67 12 129/70 98 Nasal Cannula 3 02/10/17 08:45 83 12 156/77 98 Nasal Cannula 3 02/10/17 08:41 98.6 83 12 159/82 95 Nasal Cannula 3 02/10/17 03:30 98.3 83 17 152/70 93 02/10/17 02:09 18 02/09/17 23:45 97.2 73 16 172/77 96 02/09/17 20:00 96.1 75 16 188/84 97 02/09/17 18:40 97.1 69 18 170/71 92 CBC/BMP: 02/09/17 1220 02/09/17 1220 Lab Results Laboratory Tests Test 02/10/17 02/10/17 05:31 09:55 Blood Type O NEGATIVE Antibody Screen NEGATIVE 25-Hydroxy Vitamin D Total 30.2 ng/ML Physical Exam General General Appearance: Well Developed, Well Nourished, No Acute Distress, Comfortable Eyes Eye Exam: Pupils Equal, Pupils Reactive Ears & Nose Ears & Nose Exam: Nasal Mucosa [place] Throat Throat Exam: Oral Mucosa [place] & Moist Neck Neck Exam: Neck Supple, Trachea Midline Pulmonary Resp Exam: Clear Bilaterally, No Distress Cardiology CV Exam: Regular, Good Perfusion Gastrointestinal/Abdomen GI Exam: Soft, Non-Tender, Bowel Sounds Present, Non-Distended Genitourinary Exam: Clear Urine Remarks [place] Musculoskeletal MS Exam: Joints Intact MS Remarks Right hip dressing D/I Integumentary Skin Exam: Warm, Dry Extremeties Extremities Exam: No Edema, Pedal Pulses Palpable Neurologic Neuro Exam: Alert, Awake, Oriented, Speech Clear, Chairman Ceo Equal Psychiatric Psych Exam: Appropriate Responses VTE Prophylaxis VTE Prophylaxis Device: SCDs VTE Prophylaxis Meds: Lovenox Assessment/Plan Problem List: (1) Hip fracture (2) Overactive bladder (3) Dyslipidemia Assessment/Plan 71-year-old female admitted status post fall, found with comminuted intertrochanteric fracture of the right hip. S/P Right hip reduction and intramedullary nail fixation 02/10 -Orthopedic input appreciated -POD #0 -post op care -Morphine 4 mg every 4 when necessary for pain -SCDs/Lovenox for DVT prophylaxis Neurovascular checks History of overactive bladder Continue with home medications Dyslipidemia Continue with home medications SCDs/Lovenox for DVT prophylaxis CM for dc planning, CIR vs [place] [facility] in am doing well post op D/W RN D/W Dr. Kennedy D/W pt and family D/W CM This patient was seen by myself and Dr. Kennedy, this note is written on his behalf Problem Qualifiers (1) Hip fracture: Qualified Code: S72.001A - Hip fracture, right, closed, initial encounter Kisha Ruiz Feb 10, 2017 13:02
--- NOTE | 2017-02-10 15:25 | RADRPT ---
EXAM DATE/TIME: 02/10/2017 08:21 [place] COMPARISON: No previous studies available for comparison. INDICATIONS : ORIF right hip troch nail. MEDICAL HISTORY : None. SURGICAL HISTORY : None. ENCOUNTER: Subsequent ACUITY: 2 days PAIN SCORE: Non-responsive. LOCATION: Right hip. FINDINGS: A two view examination of the right hip was performed. Medullary stacie and osseous screws secure the pr eviously noted intratrochanteric fracture. Fracture fragments are in excellent anatomic alignment CONCLUSION: Successful open reduction and internal fixation of right intertrochanteric hip fracture as above . Deangelo Gandara MD on February 10, 2017 at 15:22 Board Certified Radiologist. This report was verified electronically.
[2017-02-10 15:45] VITALS: BP 124/58; PULSE 79; RESP 17; TEMP 96.3; O2SAT 94
[2017-02-10 20:00] VITALS: BP 136/62; PULSE 84; RESP 16; TEMP 97.4; O2SAT 95
[2017-02-10] MEDS ORDERED: INSULIN HUMAN REGULAR 1,000 UNITS/10 ML VIAL SQ PRN (23:45)
[2017-02-11] VITALS (7 sets, daily range): BP systolic 128–183; BP diastolic 63–78; PULSE 69–83; RESP 16–18; TEMP 97.4–99.4; O2SAT 94–98
[2017-02-11 06:28] LABS: HEMATOCRIT 32.7 % (35.0-46.0); MEAN CELL VOLUME 81.7 FL (80.0-100.0); MEAN CORPUSCULAR HEMOGLOBIN 28.6 PG (27.0-34.0); MEAN CORPUSCULAR HGB CONC 34.9 % (32.0-36.0); PLATELET COUNT 226 TH/MM3 (150-450); RED CELL DISTRIBUTION WIDTH 15.7 % (11.6-17.2); REVIEW FLAG FINAL; WHITE BLOOD COUNT 9.7 TH/MM3 (4.0-11.0)
[2017-02-11] MEDS: CALCIUM/VITAMIN D 250 MG/125 U TAB PO SCH ×3 (08:14→17:25)
[2017-02-11] MEDS: CHOLECALCIFEROL (VIT D3) 5000 UNIT CAP PO SCH (08:14)
[2017-02-11] MEDS: ENOXAPARIN SODIUM 30 MG/0.3 ML SYRINGE SQ SCH (08:14)
[2017-02-11] MEDS: ACETAMINOPHEN/HYDROcodone 325 MG/7.5 MG TAB PO PRN ×2 (08:16→21:43)
[2017-02-11] MEDS ORDERED: ATORVASTATIN 10 MG TAB PO SCH (09:00)
--- NOTE | 2017-02-11 09:33 | HHI.PR ---
Subjective Subjective Remarks S/P Right hip reduction and intramedullary nail fixation 02/10 minimal pain no cp no sob no fever no bm yet has been out of bed, anxious to get to rehab Review of Systems Constitutional Constitutional Remarks 12 point ROS completed, negative except as noted above Vitals/Results Intake & Output 02/10/17 02/10/17 02/11/17 15:00 23:00 07:00 Intake Total 1040 ml 480 ml Output Total 1350 ml 350 ml Balance -310 ml 130 ml Intake Oral 240 ml 480 ml IV Total 300 ml Other 500 ml Output Urine Total 1250 ml 350 ml Estimated Blood Loss 100 ml # Bowel Movements 0 0 Vital Signs Vital Signs Date Time Temp Pulse Resp B/P Pulse Ox O2 Delivery O2 Flow Rate FiO2 02/11/17 09:25 94 21 02/11/17 08:00 99.4 78 18 146/69 97 02/11/17 04:00 98.6 82 18 128/63 94 02/11/17 00:00 97.5 78 16 149/67 94 02/10/17 20:00 97.4 84 16 136/62 95 02/10/17 15:45 96.3 79 17 124/58 94 02/10/17 11:34 96.2 69 19 153/66 95 02/10/17 09:40 95.6 63 19 139/67 95 CBC/BMP: 02/11/17 0535 02/09/17 1220 Lab Results Laboratory Tests Test 02/10/17 02/11/17 09:55 05:35 25-Hydroxy Vitamin D Total 30.2 ng/ML White Blood Count 9.7 TH/MM3 Red Blood Count 4.00 MIL/MM3 Hemoglobin 11.4 GM/DL Hematocrit 32.7 % Mean Corpuscular Volume 81.7 FL Mean Corpuscular Hemoglobin 28.6 PG Mean Corpuscular Hemoglobin 34.9 % Concent Red Cell Distribution Width 15.7 % Platelet Count 226 TH/MM3 Mean Platelet Volume 7.7 FL Physical Exam General General Appearance: Well Developed, Well Nourished, No Acute Distress, Comfortable Eyes Eye Exam: Pupils Equal, Pupils Reactive Ears & Nose Ears & Nose Exam: Nasal Mucosa [place] Throat Throat Exam: Oral Mucosa [place] & Moist Neck Neck Exam: Neck Supple, Trachea Midline Pulmonary Resp Exam: Clear Bilaterally, No Distress Cardiology CV Exam: Regular, Good Perfusion Gastrointestinal/Abdomen GI Exam: Soft, Non-Tender, Bowel Sounds Present, Non-Distended Genitourinary Exam: Clear Urine Remarks [place] Musculoskeletal MS Exam: Joints Intact MS Remarks Right hip dressing D/I Integumentary Skin Exam: Warm, Dry Extremeties Extremities Exam: No Edema, Pedal Pulses Palpable Neurologic Neuro Exam: Alert, Awake, Oriented, Speech Clear, Pricing Associate Equal Psychiatric Psych Exam: Appropriate Responses VTE Prophylaxis VTE Prophylaxis Device: SCDs VTE Prophylaxis Meds: Lovenox Assessment/Plan Problem List: (1) Hip fracture (2) Overactive bladder (3) Dyslipidemia Assessment/Plan 71-year-old female admitted status post fall, found with comminuted intertrochanteric fracture of the right hip. S/P Right hip reduction and intramedullary nail fixation 02/10 -Orthopedic input appreciated -POD #1 -post op care -pain management -SCDs/Lovenox for DVT prophylaxis Neurovascular checks History of overactive bladder Continue with home medications Dyslipidemia Continue with home medications SCDs/Lovenox for DVT prophylaxis bowel regimen hh stable poss dc today or tomorrow CIR approval pending D/W RN D/W Dr. Kennedy D/W pt D/W CM This patient was seen by myself and Dr. Kennedy, this note is written on his behalf Problem Qualifiers (1) Hip fracture: Qualified Code: S72.001A - Hip fracture, right, closed, initial encounter Kisha Ruiz Feb 11, 2017 09:33
[2017-02-11] MEDS: SODIUM CHLORIDE 0.9% FLUSH 5 ML FLUSH IVF SCH (09:43)
--- NOTE | 2017-02-11 10:04 | PD.ORT.PN ---
Subjective Subjective Remarks Pain controlled overnight Objective Vitals Vital Signs Date Time Temp Pulse Resp B/P Pulse Ox O2 Delivery O2 Flow Rate FiO2 02/11/17 09:25 94 21 02/11/17 08:00 99.4 78 18 146/69 97 02/11/17 04:00 98.6 82 18 128/63 94 02/11/17 00:00 97.5 78 16 149/67 94 02/10/17 20:00 97.4 84 16 136/62 95 02/10/17 15:45 96.3 79 17 124/58 94 02/10/17 11:34 96.2 69 19 153/66 95 I/O 02/10/17 02/10/17 02/10/17 02/11/17 02/11/17 02/11/17 07:00 15:00 23:00 07:00 15:00 23:00 Intake Total 120 ml 1040 ml 480 ml 480 ml Output Total 150 ml 1350 ml 350 ml 925 ml Balance -30 ml -310 ml 130 ml -445 ml Intake Oral 120 ml 240 ml 480 ml 480 ml IV Total 300 ml Other 500 ml Output Urine Total 150 ml 1250 ml 350 ml 925 ml Estimated Blood Loss 100 ml # Bowel Movements 0 0 0 0 Result Diagram: 02/11/17 0535 02/09/17 1220 Imaging Last 24 hours Impressions Chest X-Ray 02/09/17 1312 Signed Impressions: Service Date/Time: Thursday, February 09, 2017 13:41 - CONCLUSION: No acute disease Nixon Flaherty MD Lumbar Spine X-Ray 02/09/17 1150 Signed Impressions: Service Date/Time: Thursday, February 09, 2017 12:52 - CONCLUSION: 1. Degenerative changes in the lower lumbar spine. No acute abnormality identified. Pool Mcknight MD Hip and Pelvis X-Ray 02/09/17 1150 Signed Impressions: Service Date/Time: Thursday, February 09, 2017 12:52 - CONCLUSION: Comminuted, intertrochanteric fracture of the right hip. Deangelo Gandara MD Objective Remarks Right lower extremity: Pain over hip. No pain with knee or ankle range of motion. Distally intact sensation good capillary refills and strong dorsal flexion plantar flexion foot Assessment & Plan Assessment and Plan Right intertrochanteric fracture of hip POD 1 IM nail Physical therapy weightbearing as tolerated Daily dressing changes beginning POD 2 Case management for rehabilitation placement Lovenox Incentive spirometry Plan for discharge to rehabilitation on or Thursday follow-up with Dr. Garvey or PA in 2 weeks Farshad Bass Jr. Feb 11, 2017 10:04
[2017-02-12] VITALS: BP 132/60; PULSE 76; RESP 17; TEMP 97.9; O2SAT 94
--- NOTE | 2017-02-12 06:43 | PD.ORT.PN ---
Subjective Subjective Remarks Pain controlled overnight Objective Vitals Vital Signs Date Time Temp Pulse Resp B/P Pulse Ox O2 Delivery O2 Flow Rate FiO2 02/12/17 00:00 97.9 76 17 132/60 94 02/11/17 19:45 98.5 83 18 183/78 95 02/11/17 16:00 97.4 76 18 150/66 98 02/11/17 11:51 97.4 69 18 146/66 97 02/11/17 09:25 94 21 02/11/17 08:00 99.4 78 18 146/69 97 I/O 02/11/17 02/11/17 02/11/17 02/12/17 02/12/17 02/12/17 07:00 15:00 23:00 07:00 15:00 23:00 Intake Total 1680 ml 480 ml 240 ml Output Total 925 ml Balance 755 ml 480 ml 240 ml Intake Oral 1680 ml 480 ml 240 ml Output Urine Total 925 ml # Voids 1 1 2 # Bowel Movements 0 0 Result Diagram: 02/11/17 0535 02/09/17 1220 Imaging Last 24 hours Impressions Chest X-Ray 02/09/17 1312 Signed Impressions: Service Date/Time: Thursday, February 09, 2017 13:41 - CONCLUSION: No acute disease Nixon Flaherty MD Lumbar Spine X-Ray 02/09/17 1150 Signed Impressions: Service Date/Time: Thursday, February 09, 2017 12:52 - CONCLUSION: 1. Degenerative changes in the lower lumbar spine. No acute abnormality identified. Pool Mcknight MD Hip and Pelvis X-Ray 02/09/17 1150 Signed Impressions: Service Date/Time: Thursday, February 09, 2017 12:52 - CONCLUSION: Comminuted, intertrochanteric fracture of the right hip. Deangelo Gandara MD Objective Remarks Right lower extremity: Pain over hip. Clean dry dressings intact No pain with knee or ankle range of motion. Distally intact sensation good capillary refills and strong dorsal flexion plantar flexion foot Assessment & Plan Assessment and Plan Right intertrochanteric fracture of hip POD 2 IM nail Physical therapy weightbearing as tolerated Daily dressing changes Case management for rehabilitation placement - ortho cleared Lovenox Incentive spirometry Plan for discharge to rehabilitation when bed available follow-up with Dr. Garvey or PA in 2 weeks Farshad Bass Jr. Feb 12, 2017 06:43
[2017-02-12 08:00] VITALS: BP 129/60; PULSE 74; RESP 18; TEMP 97.3; O2SAT 95
[2017-02-12] MEDS: ENOXAPARIN SODIUM 30 MG/0.3 ML SYRINGE SQ SCH (09:44)
[2017-02-12] MEDS: CHOLECALCIFEROL (VIT D3) 5000 UNIT CAP PO SCH (09:44)
[2017-02-12] MEDS: CALCIUM/VITAMIN D 250 MG/125 U TAB PO SCH ×2 (09:44→13:00)
[2017-02-12] MEDS: TOLTERODINE TARTRATE 2 MG CAP LA PO SCH (09:45)
[2017-02-12] MEDS: SODIUM CHLORIDE 0.9% FLUSH 5 ML FLUSH IVF SCH (09:50)
--- NOTE | 2017-02-12 10:26 | HHI.PR ---
Subjective Subjective Remarks S/P Right hip reduction and intramedullary nail fixation 02/10 minimal pain no cp no sob no fever no bm yet, has been passing gas Review of Systems Constitutional Constitutional Remarks 12 point ROS completed, negative except as noted above Vitals/Results Intake & Output 02/11/17 02/11/17 02/12/17 15:00 23:00 07:00 Intake Total 1680 ml 480 ml 240 ml Output Total 925 ml Balance 755 ml 480 ml 240 ml Intake Oral 1680 ml 480 ml 240 ml Output Urine Total 925 ml # Voids 1 1 2 # Bowel Movements 0 0 Vital Signs Vital Signs Date Time Temp Pulse Resp B/P Pulse Ox O2 Delivery O2 Flow Rate FiO2 02/12/17 08:00 97.3 74 18 129/60 95 02/12/17 00:00 97.9 76 17 132/60 94 02/11/17 19:45 98.5 83 18 183/78 95 02/11/17 16:00 97.4 76 18 150/66 98 02/11/17 11:51 97.4 69 18 146/66 97 CBC/BMP: 02/11/17 0535 02/09/17 1220 Physical Exam General General Appearance: Well Developed, Well Nourished, No Acute Distress, Comfortable Eyes Eye Exam: Pupils Equal, Pupils Reactive Ears & Nose Ears & Nose Exam: Nasal Mucosa [place] Throat Throat Exam: Oral Mucosa [place] & Moist Neck Neck Exam: Neck Supple, Trachea Midline Pulmonary Resp Exam: Clear Bilaterally, No Distress Cardiology CV Exam: Regular, Good Perfusion Gastrointestinal/Abdomen GI Exam: Soft, Non-Tender, Bowel Sounds Present, Non-Distended Genitourinary Exam: Clear Urine Remarks [place] Musculoskeletal MS Exam: Joints Intact MS Remarks Right hip dressing D/I Integumentary Skin Exam: Warm, Dry Extremeties Extremities Exam: No Edema, Pedal Pulses Palpable Neurologic Neuro Exam: Alert, Awake, Oriented, Speech Clear, Brand Mgr Equal Psychiatric Psych Exam: Appropriate Responses VTE Prophylaxis VTE Prophylaxis Device: SCDs VTE Prophylaxis Meds: Lovenox Assessment/Plan Problem List: (1) Hip fracture (2) Overactive bladder (3) Dyslipidemia Assessment/Plan 71-year-old female admitted status post fall, found with comminuted intertrochanteric fracture of the right hip. S/P Right hip reduction and intramedullary nail fixation 02/10 -Orthopedic input appreciated -POD #2 -post op care -pain management -SCDs/Lovenox for DVT prophylaxis Neurovascular checks History of overactive bladder Continue with home medications Dyslipidemia Continue with home medications SCDs/Lovenox for DVT prophylaxis bowel regimen, give MOM now hh stable discharge today to [facility] after she has BM f/u ortho 2 weeks Diet -heart healthy Activity-per ortho D/W RN D/W Dr. Amezcua D/W pt D/W CM This patient was seen by myself and Dr. Amezcua, this note is written on his behalf Discharge Minutes: 40 Problem Qualifiers (1) Hip fracture: Qualified Code: S72.001A - Hip fracture, right, closed, initial encounter Kisha Ruiz Feb 12, 2017 10:26
--- NOTE | 2017-02-12 10:29 | HHI.DCPOC ---
Discharge Care Plan Diagnosis: (1) Osteoarthritis of right knee (2) Total knee replacement status Your Health Problems Are: Difficulty with ADL Loss of Movements Goals to Promote Your Health * To prevent worsening of your condition and complications * To maintain your health at the optimal level Directions to Meet Your Goals Take your medications as prescribed Follow your dietary instruction Follow activity as directed Keep your appointments as scheduled Take your immunizations and boosters as scheduled If your symptoms worsen call your PCP, if no PCP go to Urgent Care Center or Emergency Room Smoking is Dangerous to Your Health. Avoid second hand smoke Call the 24-hour hour crisis hotline for domestic abuse at Kisha RuizP Feb 12, 2017 10:29
--- NOTE | 2017-02-12 10:30 | HHI.DS ---
Discharge Summary Admission Date Feb 09, 2017 at 13:26 Discharge Date: Feb 12, 2017 Admitting Diagnosis acute right hip fracture (1) Hip fracture (2) Dyslipidemia (3) Overactive bladder (4) Heart murmur Procedures S/P Right hip reduction and intramedullary nail fixation 02/10 CBC/BMP: 02/11/17 0535 02/09/17 1220 Significant Findings Laboratory Tests Test 02/09/17 02/11/17 12:20 05:35 Neutrophils (%) (Auto) 79.9 % (16.0-70.0) Urine Occult Blood TRACE (NEG) Urine RBC 4 /hpf (0-3) Urine Bacteria OCC /hpf (NONE) Estimat Glomerular Filtration 68 ML/MIN (>89) Rate Hemoglobin 11.4 GM/DL (11.6-15.3) Hematocrit 32.7 % (35.0-46.0) Hospital Course This is a pleasant 71-year-old female with past medical history of dyslipidemia , melanoma, overactive bladder, osteoarthritis, heart murmur. Patient was in her usual state of health. Stated that she was at home going to her living room when her sister called her name, and she twisted her body to look at her and lost her balance and landed on her right hip. She had difficulty bearing weight. Indicated the pain was severe. Has intact sensation. Denied hitting her head, or neck pain. Denied any preceding symptoms prior to fall such as dizziness, lightheadedness, no chest pain. Patient was evaluated in emergency room, laboratory workup unremarkable. Imaging studies were completed showing comminuted intertrochanteric fracture of the right hip. Orthopedic was consulted from the emergency room, Tran's traction has been ordered. Patient was complaining of pain with any movement. She had intact sensation. Patient denied any recent illnesses, no recent fever, no chills. Denied any chest pain , shortness of breath. Patient was admitted for further evaluation and treatment (1) Hip fracture (2) Overactive bladder (3) Dyslipidemia (4) Heart murmur During the course of the hospitalization the following took place: 71-year-old female admitted status post fall, found with comminuted intertrochanteric fracture of the right hip. S/P Right hip reduction and intramedullary nail fixation 02/10 -Orthopedic input appreciated -post op care -pain management ordered. -SCDs/Lovenox for DVT prophylaxis Neurovascular checks were done, remained stable -Pt. tolerated surgical procedure well History of overactive bladder Continued with home medications Dyslipidemia Continued with home medications Heart murmur, stable, pt. was being monitored as OP by PCP, had recent echo -monitored. Was on SCDs/Lovenox for DVT prophylaxis bowel regimen ordered hh stable Cleared for discharge by ortho Discharged to [facility] f/u ortho 2 weeks Diet -heart healthy Activity-per ortho Pt Condition on Discharge: Stable Discharge Disposition: Rehab Inpatient Discharge Instructions DIET: Follow Instructions for: Heart Healthy Diet Activities you can perform: See Additionl Instruction Other Activity Instructions: PER ORTHO Follow up Referrals: Orthopedics - 02/23/17 @ [facility] with Morales Romero MD New Medications: Calcium Carbonate-Vitamin D (Calcium 600+D 200) 600-200 Mg-Unit Tab 1 TAB PO BID Nutritional Supplement Days 30 Ref 0 TAB Cholecalciferol (Vitamin D3) 2,000 Unit Cap 2000 UNITS PO DAILY Nutritional Supplement #56 Ref 0 CAP Ergocalciferol (Ergocalciferol) 50,000 Unit Cap 85995 UNITS PO Q7D Nutritional Supplement #56 CAP Hydrocodone-Acetaminophen ([place]) 7.5-325 mg Tab 1 TAB PO Q4H PRN PAIN #60 Ref 0 TAB Rivaroxaban (Xarelto) 10 Mg Tab 10 MG PO DAILY Blood Clot Prevention #14 Ref 0 TAB Walker/Adult/Folding (Walker/Adult/Folding) 1 Mis Mis 1 EA .ROUTE DIRECTED #1 Ref 0 EA Kisha Ruiz Feb 12, 2017 10:30
[2017-02-12 12:02] VITALS: BP 160/71; PULSE 80; RESP 18; TEMP 97.3; O2SAT 97
[2017-02-20] MEDS ORDERED: ROSU5 PO (09:23)
[2017-02-20] MEDS ORDERED: ASPI81CH CHEW (09:23)
[2017-02-20] MEDS ORDERED: VITA2000 PO (09:23)
[2017-02-20] MEDS ORDERED: XARE10TA PO (09:23)
[2017-02-20] MEDS ORDERED: CALCTAB19 PO (09:23)
== END 2017-02-12 18:14 | DRG 482 ==
LOC: NEPE 11:48 → NEDA 13:26 → N06B 17:01
PROVIDERS: ADMIT Specialist; ATTEND Specialist
PROC: 0T9B70Z Drainage of Bladder with Drainage Device, Via Natural or Artificial Opening (ICD-10-PCS; 2017-02-09)
PROC: 0QS606Z Reposition Right Upper Femur with Intramedullary Internal Fixation Device, Open Approach (ICD-10-PCS; principal; 2017-02-10 07:30)
DX: S72.141A Displaced intertrochanteric fracture of right femur, initial encounter for closed fracture (principal); N32.81 Overactive bladder; M85.80 Other specified disorders of bone density and structure, unspecified site; E78.00 Pure hypercholesterolemia, unspecified; E78.5 Hyperlipidemia, unspecified; R01.1 Cardiac murmur, unspecified; Z85.41 Personal history of malignant neoplasm of cervix uteri; Y93.89 Activity, other specified; Y92.009 Unspecified place in unspecified non-institutional (private) residence as the place of occurrence of the external cause; Y99.9 Unspecified external cause status; Z85.820 Personal history of malignant melanoma of skin; Z96.651 Presence of right artificial knee joint; Z88.2 Allergy status to sulfonamides; Z91.048 Other nonmedicinal substance allergy status; W01.0XXA Fall on same level from slipping, tripping and stumbling without subsequent striking against object, initial encounter
CPT/HCPCS: 51702; 71010; 72100; 73502; 76000; 80048; 81001; 82306; 83735; 85025; 85027; 85610; 85730; 86850; 86900; 86901; 93005; C1713; J0690; J1100; J1170; J1580; J1650; J2250; J2270; J2405; J3010; J3370; J7040; J7050; J7120; L1830